=== PATIENT | male | born 1990 | race Caucasian/White ===

== ENCOUNTER 2019-11-17 12:17 | Emergency (ER) | payer SELFPAY ==
[~2019-11-17] VITALS: Ht 177.8 cm; Wt 72.5 kg
[2019-11-17 12:39] VITALS: BP 142/76
[2019-11-17] MEDS ORDERED: IBUPROFEN 400 MG TABLET. PO ONE (12:45)
[2019-11-17] MEDS ORDERED: IBUP-1007 PO (12:49)
--- NOTE | 2019-11-17 12:51 | PHYS DOC ---
General Adult EDM: Chief Complaint: FOOT INJURY PAIN HPI: HPI: Patient is a 29 year old male who presents with was in [place] for the last month trying to get his " life back together" and stay clean off of meth. He states that he asked his parents to be back in his life and he was trying to make his way back here to [facility] [place] [place] where they live. He states that he walked for 50 miles and now his feet hurt. He denies injury. He states he wants nonnarcotic medications or ice. Patient is educated that he should not walk for 50 miles at 1 time anymore as this will cause him more pain. Patient then states " tell god that". Patient is acting very irratically. He will not s whitley still in the chair in the room. Seems very anxious. He was involved in a police tasing of him when he tried to fight them in [place] 3 weeks ago. He also has a prescription for hydroxyzine that is empty from 2 days ago. He states he lost half of them but is not asking for refills. Rates his pain a 10/10. He states he is currently staying with his parents in [facility]. His step dad drove him to the hospital today. Denies nausea, vomting, headache, dizziness, sleepiness, vision changes, numbness or tingling, chest pain, soa, diarrhea, palpitation, abdominal pain. Review of Systems: Review of Systems: Musculoskeletal: Denies back pain or joint pain. Bilateral foot pain. [] Heart Score: Risk Factors: Risk Factors: DM, Current or recent (<one month) smoker, HTN, HLP, family history of CAD, obesity. Risk Scores: Score 0 - 3: 2.5% MACE over next 6 weeks - Discharge Home Score 4 - 6: 20.3% MACE over next 6 weeks - Admit for Clinical Observation Score 7 - 10: 72.7% MACE over next 6 weeks - Early Invasive Strategies Physical Exam: PE: Constitutional: Well developed, well nourished, no acute distress, non-toxic appearance. [] HENT: Normocephalic, atraumatic, bilateral external ears normal, oropharynx moist, no oral exudates, nose normal. [] Eyes: PERRLA, EOMI, conjunctiva normal, no discharge. [] Neck: Normal range of motion, no tenderness, supple, no stridor. [] Cardiovascular:Heart rate regular rhythm, no murmur [] Lungs & Thorax: Bilateral breath sounds clear to auscultation [] Abdomen: Bowel sounds normal, soft, no tenderness, no masses, no pulsatile masses. [] Skin: Warm, dry, no erythema, no rash.Callus's to bilateral bottom of feet. Blisters to bilateral great toes. [] Back: No tenderness, no CVA tenderness. [] Extremities: Bilateral bottom of feet tenderness, no cyanosis, no clubbing, ROM intact, no edema. [] Neurologic: Alert and oriented X 3, normal motor function, normal sensory function, no focal deficits noted. [] Psychologic: Affect normal, judgement normal, mood normal. [] EKG: EKG: [] Radiology/Procedures: Radiology/Procedures: [] Course & Med Decision Making: Course & Med Decision Making Pertinent Labs and Imaging studies reviewed. (See chart for details) Bilateral bottoms of feet are callused. He has a couple of open non draining, noninfected blisters to the dorsal of hi feet over his great toes bilaterally. Feet are not swollen. Bottoms of feet are tender and sore. Pedal pulses are strong and present. Cap refill less than 3 seconds. Alert and oriented. Ambulatory with steady gait. Speaks in full clear sentences. PERRLA. [] Upon nurse going into the room the patient is not in the room and his belongings are gone. No xrays have been done. Patient left without telling staff. Ruben Disclaimer: Ruben Disclaimer: This electronic medical record was generated, in whole or in part, using a voice recognition dictation system. Departure Departure Impression: Primary Impression: Foot pain, bilateral Disposition: HOME, SELF-CARE (Left without telling staff or full exam. ) Condition: STABLE Referrals: NO PCP (PCP) RAMIRO RAI APRN November 17, 2019 12:51
[2019-11-17 13:12] LABS: BARBITURATES NEG (NEG); BENZODIAZEPINES NEG (NEG); CANNABINOIDS POS (NEG); COCAINE NEG (NEG); METHADONE NEG (NEG); OPIATES NEG (NEG); PHENCYCLIDINE NEG (NEG)
[2019-11-17 13:16] LABS: AMPHETAMINE/METHAMPHETAMINE NEG (NEG)
== END 2019-11-17 13:01 | disposition home or self-care (01) ==
LOC: ER 12:17
DX: M79.672 Pain in left foot (principal); M79.671 Pain in right foot
CPT/HCPCS: 80307; 99284

== ENCOUNTER 2020-01-17 15:07 | Emergency (ER) | payer SELFPAY ==
[~2020-01-17] VITALS: Ht 180.3 cm; Wt 80.0 kg
[~2020-01-17 15:07] MED LIST: IBUP-1007 PO
[2020-01-17 15:15] VITALS: BP 108/75
--- NOTE | 2020-01-17 15:39 | PHYS DOC ---
Past Medical History Past Medical History: MRSA Past Surgical History: Tonsillectomy Smoking Status: Current Every Day Smoker Alcohol Use: Heavy General Adult EDM: Chief Complaint: HEAT EXPOSURE HPI: HPI: Patient is a 29 year old male who was brought here by EMS after he was found wandering around the [place]. Patient said he feels weak and tired patient said he feels thirsty and hungry. Patient just wants somewhere to rest and have some food to eat. Patient denies suicidal ideation, denies homicidal ideation. Patient denies any cough, no chest pain, no abdominal pain, no extremity pain. Patient is homeless. Review of Systems: Review of Systems: Constitutional: Denies fever or chills. [] Eyes: Denies change in visual acuity. [] HENT: Denies nasal congestion or sore throat. [] Respiratory: Denies cough or shortness of breath. [] Cardiovascular: Denies chest pain or edema. [] GI: Denies abdominal pain, nausea, vomiting, bloody stools or diarrhea. [] : Denies dysuria. [] Musculoskeletal: Denies back pain or joint pain. [] Integument: Denies rash. [] Neurologic: Denies headache, focal weakness or sensory changes. Positive for generalized weakness. Endocrine: Denies polyuria or polydipsia. [] Lymphatic: Denies swollen glands. [] Psychiatric: Denies depression or anxiety. [] Heart Score: Risk Factors: Risk Factors: DM, Current or recent (<one month) smoker, HTN, HLP, family history of CAD, obesity. Risk Scores: Score 0 - 3: 2.5% MACE over next 6 weeks - Discharge Home Score 4 - 6: 20.3% MACE over next 6 weeks - Admit for Clinical Observation Score 7 - 10: 72.7% MACE over next 6 weeks - Early Invasive Strategies Allergies: Allergies: Allergies Coded Allergies Type Severity Reaction Last Updated Verified No Known Drug Allergies 11/17/19 No Physical Exam: PE: Constitutional: Well developed, well nourished, no acute distress, non-toxic appearance. [] HENT: Normocephalic, atraumatic, bilateral external ears normal, oropharynx moist, no oral exudates, nose normal. [] Eyes: PERRLA, EOMI, conjunctiva normal, no discharge. [] Neck: Normal range of motion, no tenderness, supple, no stridor. [] Cardiovascular:Heart rate regular rhythm, no murmur [] Lungs & Thorax: Bilateral breath sounds clear to auscultation [] Abdomen: Bowel sounds normal, soft, no tenderness, no masses, no pulsatile masses. [] Skin: Warm, dry, no erythema, no rash. [] Back: No tenderness, no CVA tenderness. [] Extremities: No tenderness, no cyanosis, no clubbing, ROM intact, no edema. [] Neurologic: Alert and oriented X 3, normal motor function, normal sensory function, no focal deficits noted. [] Psychologic: Affect normal, judgement normal, mood normal. [] EKG: EKG: [] Radiology/Procedures: Radiology/Procedures: [] Course & Med Decision Making: Course & Med Decision Making Pertinent Labs and Imaging studies reviewed. (See chart for details) Patient was given food to eat in the ER, water to drink in the ER. Patient felt much better. Patient WILL be discharged from the ER. Ruben Disclaimer: Ruben Disclaimer: This electronic medical record was generated, in whole or in part, using a voice recognition dictation system. Departure Departure Impression: Primary Impression: Heat exposure Additional Impressions: Homelessness Hungry Disposition: 01 HOME, SELF-CARE Condition: IMPROVED Referrals: NO PCP (PCP) Follow-up with your doctor as needed. Patient Instructions: Heat Disorders Justicifation of Admission Dx: Justifications for Admission: Justification of Admission Dx: N/A ALVAREZ KLEIN DO Jan 17, 2020 15:39
== END 2020-01-17 16:35 | disposition home or self-care (01) ==
LOC: ER 15:07
DX: T67.5XXA Heat exhaustion, unspecified, initial encounter (principal); T73.0XXA Starvation, initial encounter; Z59.0 Homelessness; F17.200 Nicotine dependence, unspecified, uncomplicated; F10.10 Alcohol abuse, uncomplicated; Z86.14 Personal history of Methicillin resistant Staphylococcus aureus infection; Z90.89 Acquired absence of other organs; X58.XXXA Exposure to other specified factors, initial encounter; Y93.89 Activity, other specified; Y92.89 Other specified places as the place of occurrence of the external cause; Y99.8 Other external cause status
CPT/HCPCS: 99283